=== PATIENT | male | born 1975 | race Caucasian/White ===

== ENCOUNTER 2023-04-23 15:58 | Emergency (ER) | payer OTHER, SELFPAY ==
--- NOTE | 2023-04-23 | ECG_ITS ---
Test Reason : CHEST PAIN Blood Pressure : / mmHG Vent. Rate : 062 BPM Atrial Rate : 062 BPM P-R Int : 136 ms QRS Dur : 096 ms QT Int : 390 ms P-R-T Axes : 063 023 027 degrees QTc Int : 395 ms Normal sinus rhythm with sinus arrhythmia Normal ECG No previous ECGs available Referred By: Generic ED Physician Electronically Signed By:FARA NASH MD
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
[2023-04-23 17:03] VITALS: BP 144/87; BP 188/106; PULSE 106; PULSE 71; RESP 18; TEMP 36.8; O2SAT 97; BMI 25.6
[2023-04-23 17:37] LABS: MANUAL DIFF FLAG NO
[2023-04-23 17:40] LABS: Appearance Urine Clear; Color Urine Yellow; Glucose Urine UA Negative (Negative); Leukocyte Esterase Urine Negative (Negative); Nitrite Urine Negative (Negative); PH 7.5 (5.0-9.0); Specific Gravity - Urine 1.015 (1.005-1.025); Urine Blood Negative (Negative); Urine Ketones Negative (Negative); Urine Protein Negative (Neg-Trace)
[2023-04-23 17:42] LABS: Basophils Percent Auto 0.4 % (0-2); Eosinophils Absolute Auto 0.1 X10*3/uL (0.0-0.4); Eosinophils Percent Auto 0.6 % (0-4); Hematocrit 45.1 % (42.0-52.0); Hemoglobin 15.4 g/dl (14.0-18.0); Imm Gran Abs Auto 0.07 X10*3/uL (0.00-0.03); Imm Gran Pct Auto 0.7 % (0.0-0.4); Lymphocytes Absolute Auto 1.9 X10*3/uL (1.2-4.9); Lymphocytes Percent Auto 18.7 % (20-40); Mean Corpuscular HGB Conc 34.1 g/dl (31.0-36.0); Mean Corpuscular Hemoglobin 30.3 pg (27.0-33.0); Mean Corpuscular Volume 88.6 fL (80.0-98.0); Mean Platelet Volume 10.5 fL (9.4-12.4); Monocytes Absolute Auto 0.6 X10*3/uL (0.1-1.2); Neutrophils Absolute Auto 7.5 x10*3/uL (2.0-8.3); Neutrophils Percent Auto 73.6 % (45-73); Platelet Count 234 X10*3/uL (160-400); Red Blood Count 5.09 X10*6/uL (4.60-5.80); Red Cell Distribution Width 11.9 % (11.0-16.0); White Blood Count 10.2 X10*3/uL (4.8-10.8)
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
[2023-04-23 17:53] LABS: Alanine Aminotransferase 16 U/L (0-40); Albumin Level 4.5 g/dL (3.5-5.0); Alkaline Phosphatase 64 U/L (39-117); Anion Gap 11 (12-20); Aspartate Amino Transferase 20 U/L (5-37); Bilirubin Total 0.5 mg/dL (0.0-1.0); Blood Urea Nitrogen 14 mg/dL (9-16); Calcium 9.8 mg/dL (8.4-10.2); Carbon Dioxide 28 mmol/L (22-29); Chloride 105 mmol/L (96-108); Creatinine Clr Calc Pharmacy 124.1; Estimated Glomerular Filt Rate > 60; Ethanol < 10 mg/dL; Glucose Random 93 mg/dL (60-115); Sodium 140 mmol/L (135-145); Total Protein 7.7 g/dL (6.5-8.0)
[2023-04-23 18:46] LABS: Troponin-I High Sensitivity 3.4 ng/L (<3.5-35.0)
[2023-04-23] MEDS: iohexoL 350 MG/ML 100 ML INFUS..BTL 65 ML IV (19:58)
[2023-04-23 20:23] VITALS: BP 110/67; PULSE 72; RESP 18; O2SAT 96
[2023-04-23] MEDS: Acetaminophen 325 MG TABLET 975 MG PO (20:24)
--- NOTE | 2023-04-23 20:31 | PC.NURSE ---
pt reporting increased pain in right knee and chest, provider aware, medicated per MAR, vss.
[2023-04-23 22:24] VITALS: BP 121/64; PULSE 76; O2SAT 96
--- NOTE | 2023-04-23 22:59 | PC.NURSE ---
second troponin obtained MAGGY moreau
[2023-04-23 23:21] LABS: Troponin-I High Sensitivity 3.5 ng/L (<3.5-35.0)
== END 2023-04-23 23:56 | disposition home or self-care (01) ==
PROVIDERS: Physician Assistant Medical; Emergency Provider Emergency Medicine
DX: S13.4XXA Sprain of ligaments of cervical spine, initial encounter (principal); S20.213A Contusion of bilateral front wall of thorax, initial encounter; R07.89 Other chest pain; R51.9 Headache, unspecified; M54.2 Cervicalgia; M25.561 Pain in right knee; M54.6 Pain in thoracic spine; V43.52XA Car driver injured in collision with other type car in traffic accident, initial encounter; Y93.9 Activity, unspecified; Y92.410 Unspecified street and highway as the place of occurrence of the external cause; Y99.9 Unspecified external cause status; Z79.899 Other long term (current) drug therapy
CPT/HCPCS: 36415; 70450; 70486; 71260; 72125; 73562; 80053; 80307; 81003; 84484; 85025; 93005; 99284; 99285; Q9967

== ENCOUNTER → 2023-04-23 17:20 | Outpatient (BNV) | payer SELFPAY | PROVIDERS: Emergency Provider Emergency Medicine; Visit Provider Internal Medicine Cardiovascular Disease | DX: R07.9 Chest pain, unspecified (principal) | CPT/HCPCS: 93010 ==